=== PATIENT | male | born 1990 | race Caucasian/White ===

== ENCOUNTER 2019-04-26 14:00 | Emergency (ER) | payer OTHER ==
[~2019-04-26] VITALS: Ht 177.8 cm; Wt 95.3 kg
[~2019-04-26 14:00] MED LIST: ADDERALL 20 MG20 M1 PO; HYDROCODONE-APA1 TA1 PO
[2019-04-26 16:35] VITALS: BP 116/69
[2019-04-26] MEDS ORDERED: KEFLEX500 M2 PO ×2 (16:38→16:42)
[2019-04-26] MEDS ORDERED: NORCO 5-325 TA1 EAC1 PO (16:38)
== END 2019-04-26 16:35 | disposition home or self-care (01) ==
LOC: ER 14:00
DX: S61.213A Laceration without foreign body of left middle finger without damage to nail, initial encounter (principal); F90.9 Attention-deficit hyperactivity disorder, unspecified type; W20.8XXA Other cause of strike by thrown, projected or falling object, initial encounter; Y93.89 Activity, other specified; Y92.89 Other specified places as the place of occurrence of the external cause; Y99.0 Civilian activity done for income or pay

== ENCOUNTER 2019-05-06 11:33 | Emergency (ER) | payer OTHER ==
[~2019-05-06] VITALS: Ht 180.3 cm; Wt 95.3 kg
[~2019-05-06 11:33] MED LIST changes: +KEFLEX500 M2 PO; +NORCO 5-325 TA1 EAC1 PO
[2019-05-06 12:54] VITALS: BP 127/72
== END 2019-05-06 13:34 | disposition home or self-care (01) ==
LOC: ER 11:33
DX: S61.213D Laceration without foreign body of left middle finger without damage to nail, subsequent encounter (principal); F90.9 Attention-deficit hyperactivity disorder, unspecified type; W23.0XXD Caught, crushed, jammed, or pinched between moving objects, subsequent encounter